=== PATIENT | male | born 1950 | race Caucasian/White ===

== ENCOUNTER 2017-01-16 14:54 | Outpatient (CLI) | payer MEDICARE ==
[2017-01-16 15:39] LABS: ALT (SGPT) 9 U/L (0-55); AST (SGOT) 13 U/L (5-34); Albumin 3.4 g/dL (3.4-4.8); Alkaline Phosphatase 88 U/L (40-150); Anion Gap 13 mmol/L (10-20); BUN (Urea Nitrogen) 14 mg/dL (8.4-25.7); Bilirubin, Total 0.3 mg/dL (0.2-1.2); Calc. Creatinine Clearance 0 mL/min (70-130); Calcium 8.3 mg/dL (7.8-10.44); Carbon Dioxide 27 mmol/L (23-31); Chloride 102 mmol/L (98-107); Estimated GFR-MDRD Greater than 90; Globulin 2.7 g/dL (2.4-3.5); Glucose 110 mg/dL (80-115); Potassium 3.2 mmol/L (3.5-5.1); Protein, Total 6.1 g/dL (5.8-8.1); Sodium 139 mmol/L (136-145)
== END 2017-01-16 14:55 | disposition home or self-care (01) ==
LOC: MADLABBHPM 14:54
PROVIDERS: ATTEND Family Medicine
DX: E03.9 Hypothyroidism, unspecified (principal); E87.6 Hypokalemia
CPT/HCPCS: 80053; 84443

== ENCOUNTER 2017-07-18 10:22 | Outpatient (CLI) | payer MEDICARE ==
[2017-07-18 11:11] LABS: ALT (SGPT) 8 U/L (8-55); AST (SGOT) 11 U/L (5-34); Albumin 3.3 g/dL (3.4-4.8); Alkaline Phosphatase 113 U/L (40-150); Anion Gap 11 mmol/L (10-20); BUN (Urea Nitrogen) 12 mg/dL (8.4-25.7); Bilirubin, Total 0.6 mg/dL (0.2-1.2); Calc. Creatinine Clearance 0 mL/min (70-130); Calcium 8.5 mg/dL (7.8-10.44); Carbon Dioxide 34 mmol/L (23-31); Cardiac Risk 2.2 (Less than 4.5); Chloride 100 mmol/L (98-107); Cholesterol 107 mg/dl (< 200 Desired); Estimated GFR-MDRD Greater than 90; Globulin 2.9 g/dL (2.4-3.5); Glucose 111 mg/dL (80-115); HDL Cholesterol 49 mg/dL (>60 Neg Risk); LDL Cholesterol, Calculated 48 mg/dL; Potassium 3.2 mmol/L (3.5-5.1); Protein, Total 6.2 g/dL (5.8-8.1); Sodium 142 mmol/L (136-145); Triglycerides 49 mg/dL (Less than 150)
== END 2017-07-18 10:23 | disposition home or self-care (01) ==
LOC: MADLABBHPM 10:22
PROVIDERS: ATTEND Family Medicine
DX: E78.5 Hyperlipidemia, unspecified (principal)
CPT/HCPCS: 36415; 80053; 80061

== ENCOUNTER 2017-09-18 10:18 | Outpatient (CLI) | payer MEDICARE | END 2017-09-18 10:19 | disposition home or self-care (01) | LOC: MADLAB 10:18 | PROVIDERS: ATTEND Internal Medicine Cardiovascular Disease | DX: I48.92 Unspecified atrial flutter (principal) | CPT/HCPCS: 36415; 84443 ==

== ENCOUNTER 2017-09-23 14:09 | Emergency (ER) | payer MEDICARE ==
[2017-09-23 15:17] LABS: #Eosinphils 0.1 thou/uL (0.0-0.7); #Lymphocytes 1.3 thou/uL (1.20-3.40); #Monocytes 0.7 thou/uL (0.11-0.59); %Basophils 0.3 % (0.0-1.0); %Eosinophils 1.1 % (0.0-10.0); %Lymphocytes 11.6 % (21.0-51.0); %Monocytes 6.5 % (0.0-10.0); %Neutrophils 80.4 % (42.0-75.0); Hemoglobin 13.6 g/dL (14.0-18.0); Mean Corpuscular HGB CONC 34.4 g/dL (32.0-36.0); Mean Corpuscular Hemoglobin 33.8 pg (27.0-31.0); Mean Corpuscular Volume 98.3 fl (80.0-94.0); Mean Platelet Volume 7.3 fL (7.4-10.4); Platelet Count 187 thou/uL (130-400); RBC Distribution Width 12.5 % (11.5-14.5); Red Blood Cell (RBC) Count 4.01 mill/uL (4.70-6.10); White Blood Cell (WBC) Count 11.2 thou/uL (4.8-10.8)
[2017-09-23 15:34] LABS: ALT (SGPT) 12 U/L (8-55); AST (SGOT) 11 U/L (5-34); Albumin 3.5 g/dL (3.4-4.8); Alkaline Phosphatase 93 U/L (40-150); Anion Gap 12 mmol/L (10-20); BUN (Urea Nitrogen) 10 mg/dL (8.4-25.7); Bilirubin, Total 0.6 mg/dL (0.2-1.2); Calc. Creatinine Clearance 0 mL/min (70-130); Calcium 8.4 mg/dL (7.8-10.44); Carbon Dioxide 26 mmol/L (23-31); Chloride 106 mmol/L (98-107); Estimated GFR-MDRD Greater than 90; Globulin 2.6 g/dL (2.4-3.5); Glucose 128 mg/dL (80-115); Potassium 3.9 mmol/L (3.5-5.1); Protein, Total 6.1 g/dL (5.8-8.1); Sodium 140 mmol/L (136-145)
[2017-09-23 15:36] LABS: CKMB 1.6 ng/mL (0-6.6); Troponin I Less than 0.010 ng/mL (< 0.028)
[2017-09-23] MEDS ORDERED: Furosemide 40 MG TAB ONE (15:41)
--- NOTE | 2017-09-23 15:44 | RAD ---
PORTABLE CHEST: Date: 09/23/17 HISTORY: Chest pain. COMPARISON: 10/07/15. FINDINGS: Heart size is borderline with postop sternotomy change. The lungs are clear of infiltrates. No signs of failure. IMPRESSION: No active intrathoracic disease. POS: [facility]
== END 2017-09-23 15:52 | disposition home or self-care (01) ==
LOC: MADERS 14:09
DX: I11.0 Hypertensive heart disease with heart failure (principal); I50.9 Heart failure, unspecified; I25.2 Old myocardial infarction; Z87.891 Personal history of nicotine dependence; Z79.899 Other long term (current) drug therapy
CPT/HCPCS: 36415; 71010; 80053; 82553; 83880; 84484; 85025; 93005

== ENCOUNTER 2017-10-18 10:22 | Outpatient (CLI) | payer MEDICARE ==
--- NOTE | 2017-10-18 11:29 | RAD ---
TWO VIEWS OF THE CHEST: HISTORY: Dyspnea on exertion. COMPARISON: 09/23/2017 FINDINGS: Two views of the chest show a normal sized cardiomediastinal silhouette. The patient is status post CABG. There is no evidence of consolidation, mass, or pleural effusion. IMPRESSION: No evidence of acute cardiopulmonary disease. POS: [facility]
[2017-10-18 11:57] LABS: Anion Gap 13 mmol/L (10-20); BUN (Urea Nitrogen) 13 mg/dL (8.4-25.7); Calc. Creatinine Clearance 0 mL/min (70-130); Carbon Dioxide 33 mmol/L (23-31); Chloride 99 mmol/L (98-107); Estimated GFR-MDRD Greater than 90; Glucose 118 mg/dL (80-115); Potassium 3.3 mmol/L (3.5-5.1); Sodium 142 mmol/L (136-145)
== END 2017-10-18 10:23 | disposition home or self-care (01) ==
LOC: MADRAD 10:22
PROVIDERS: ATTEND Family Medicine
DX: R06.09 Other forms of dyspnea (principal)
CPT/HCPCS: 36415; 71020; 80048; 84443

== ENCOUNTER 2017-11-06 04:54 | Emergency (ER) | payer MEDICARE ==
[2017-11-06] MEDS ORDERED: Lorazepam 2 MG/ML VIAL ONE (05:29)
[2017-11-06] MEDS ORDERED: Dexamethasone 10 MG/ML VIAL ONE (05:30)
[2017-11-06] MEDS ORDERED: methylPREDNISolone Sod Succ/PF 125 MG/2 ML VIAL ONE (05:30)
[2017-11-06] MEDS ORDERED: Aspirin 325 MG TAB ONE (05:30)
[2017-11-06] MEDS ORDERED: Promethazine HCl 25 MG/ML VIAL ONE (05:30)
[2017-11-06 06:28] LABS: #Basophils 0.1 thou/uL (0.0-0.2); #Eosinphils 0.1 thou/uL (0.0-0.7); #Monocytes 0.6 thou/uL (0.11-0.59); #Neutrophils 8.3 thou/uL (1.40-6.50); %Basophils 0.6 % (0.0-1.0); %Eosinophils 1.2 % (0.0-10.0); %Lymphocytes 17.7 % (21.0-51.0); %Monocytes 5.6 % (0.0-10.0); %Neutrophils 74.9 % (42.0-75.0); Hemoglobin 14.1 g/dL (14.0-18.0); Mean Corpuscular HGB CONC 33.6 g/dL (32.0-36.0); Mean Corpuscular Hemoglobin 33.2 pg (27.0-31.0); Mean Corpuscular Volume 98.8 fl (80.0-94.0); Mean Platelet Volume 7.2 fL (7.4-10.4); Platelet Count 231 thou/uL (130-400); RBC Distribution Width 12.2 % (11.5-14.5); Red Blood Cell (RBC) Count 4.24 mill/uL (4.70-6.10)
[2017-11-06 06:33] LABS: Prothrombin Time 12.8 SEC (12.0-14.7)
[2017-11-06 06:34] LABS: ALT (SGPT) Less than 7 U/L (8-55); AST (SGOT) 13 U/L (5-34); Albumin 3.6 g/dL (3.4-4.8); Alkaline Phosphatase 122 U/L (40-150); Anion Gap 15 mmol/L (10-20); BUN (Urea Nitrogen) 12 mg/dL (8.4-25.7); Bilirubin, Total 0.7 mg/dL (0.2-1.2); CK (CPK) 106 U/L (30-200); Calc. Creatinine Clearance 0 mL/min (70-130); Calcium 8.8 mg/dL (7.8-10.44); Carbon Dioxide 31 mmol/L (23-31); Chloride 100 mmol/L (98-107); Estimated GFR-MDRD 84; Glucose 136 mg/dL (80-115); Magnesium 2.1 mg/dL (1.6-2.6); Potassium 3.2 mmol/L (3.5-5.1); Protein, Total 6.6 g/dL (5.8-8.1); Sodium 143 mmol/L (136-145)
[2017-11-06 06:35] LABS: D-Dimer Test 0.31 *mcg/mL (0.27-0.43)
[2017-11-06 06:37] LABS: CKMB 1.3 ng/mL (0-6.6); Troponin I Less than 0.010 ng/mL (< 0.028)
[2017-11-06] MEDS ORDERED: Sodium Chloride 0.9% 1,000 ML BAG ONE (08:32)
--- NOTE | 2017-11-06 08:38 | RAD ---
RADIOGRAPH CHEST 1 VIEW: HISTORY: A 66-year-old male with dyspnea. FINDINGS: The thoracic aorta is tortuous and ectatic. There is no evidence of air space density, pneumothorax, or pulmonary edema. The lateral costophrenic angles are sharp. There is no cardiomegaly. There ar e sternotomy wires. IMPRESSION: 1) No acute pulmonary findings. 2) Ectasia of thoracic aorta. 3) Status post coronary artery bypass graft surgery is evidence for coronary artery atherosclerotic d isease. christopher [] POS: [facility]
[2017-11-06 10:21] LABS: PTT 33.7 SEC (22.9-36.1)
== END 2017-11-06 07:35 | disposition home or self-care (01) ==
LOC: MADERS 04:54
DX: R06.00 Dyspnea, unspecified (principal); I25.10 Atherosclerotic heart disease of native coronary artery without angina pectoris; I25.2 Old myocardial infarction; E78.5 Hyperlipidemia, unspecified; I11.0 Hypertensive heart disease with heart failure; I50.9 Heart failure, unspecified; Z87.891 Personal history of nicotine dependence; Z79.82 Long term (current) use of aspirin; Z79.899 Other long term (current) drug therapy; Z79.891 Long term (current) use of opiate analgesic
CPT/HCPCS: 36415; 71045; 80053; 82553; 83735; 83880; 84484; 85025; 85379; 85610; 85730; 93005; 94760; 96361; 96374; 96375; J1100; J2060; J2550; J2930; J7050; J7620

== ENCOUNTER 2018-10-03 00:31 | Emergency (ER) | payer MEDICARE ==
[2018-10-03] MEDS ORDERED: Ibuprofen 800 MG TAB ONE (00:59)
[2018-10-03] MEDS ORDERED: Acetaminophen 500 MG TAB ONE (00:59)
[2018-10-03] MEDS ORDERED: Furosemide 40 MG/4 ML VIAL ONE (01:00)
[2018-10-03 01:03] LABS: #Lymphocytes 0.7 thou/uL (1.20-3.40); #Monocytes 0.5 thou/uL (0.11-0.59); #Neutrophils 9.3 thou/uL (1.40-6.50); %Basophils 0.4 % (0.0-1.0); %Eosinophils 0.4 % (0.0-10.0); %Lymphocytes 6.8 % (21.0-51.0); %Monocytes 4.2 % (0.0-10.0); %Neutrophils 88.1 % (42.0-75.0); Hemoglobin 13.3 g/dL (14.0-18.0); Mean Corpuscular HGB CONC 33.6 g/dL (32.0-36.0); Mean Corpuscular Hemoglobin 33.3 pg (27.0-31.0); Mean Corpuscular Volume 99.2 fL (78.0-98.0); Mean Platelet Volume 6.8 fL (7.4-10.4); Platelet Count 205 thou/uL (130-400); RBC Distribution Width 11.6 % (11.5-14.5); Red Blood Cell (RBC) Count 3.99 mill/uL (4.70-6.10); White Blood Cell (WBC) Count 10.6 thou/uL (4.8-10.8)
[2018-10-03] MEDS ORDERED: cefTRIAXone\\ROCEPHIN 1 GM VIAL ONE (01:12)
[2018-10-03 01:17] LABS: Anion Gap 14 mmol/L (10-20); BUN (Urea Nitrogen) 14 mg/dL (8.4-25.7); Calc. Creatinine Clearance 0 mL/min (70-130); Calcium 8.5 mg/dL (7.8-10.44); Carbon Dioxide 27 mmol/L (23-31); Chloride 101 mmol/L (98-107); Estimated GFR-MDRD 90; Glucose 150 mg/dL (80-115); Potassium 3.6 mmol/L (3.5-5.1); Sodium 138 mmol/L (136-145)
[2018-10-03 01:23] LABS: CKMB 1.2 ng/mL (0-6.6); Troponin I Less than 0.010 ng/mL (< 0.028)
--- NOTE | 2018-10-03 08:04 | RAD ---
PORTABLE CHEST: DATE: 10/02/2018. PROVIDED CLINICAL HISTORY: Cough and congestion. FINDINGS: Comparison 11/06/2017. Cardiac and mediastinal silhouette is unchanged in appearance. Prominence of t he pulmonary vasculature and pulmonary interstitium is noted. No focal consolidation, pleural fluid, or pneumothorax apparent. Median sternotomy changes and atherosclerosis are again seen. IMPRESSION: Findings suggesting congestive failure. Followup is recommended. POS: [facility]
--- NOTE | 2018-10-03 08:45 | CT ---
PRELIMINARY REPORT/[facility]/EMERGENTY AFTER-HOURS PROCEDURE CT Angiography Chest With Intravenous Contrast EXAM DATE/TIME: 10/03/2018 2:19 AM CLINICAL HISTORY: 67 years old, male; Dyspnea; Chest pain on breathing; Prior surgery; date: 6+ months; Bypass 3 vessel s. Gastric bypass TECHNIQUE: Axial computed tomographic angiography images of the chest with intravenous contrast using CT angiogr aphy protocol. All CT scans at this facility use at least one of these dose optimization techniques: automated expos ure control; mA and/or kV adjustment per patient size (includes targeted exams where dose is matched to clinical indication); or iterative reconstruction. MIP reconstructed images were created and revie wed. CONTRAST: 100 ml of ISOVUE administered intravenously. COMPARISON: No relevant prior studies available. FINDINGS: Pulmonary arteries: No evidence of pulmonary embolism. Aorta: Normal caliber thoracic aorta without dissection or aneurysm. Lungs: Mild infiltrate or atelectasis in the posteromedial right lung base. Pleural space: No pleural fluid collection. No pneumothorax. Heart: Coronary artery calcification. No pericardial effusion. Stomach and bowel: Prior gastric bypass surgery. Lymph nodes: No pathologically enlarged lymph nodes. Bones/joints: Prior cervical spine surgery. Prior median sternotomy. Soft tissues: Unremarkable. IMPRESSION: 1. No evidence of pulmonary embolism. 2. Mild infiltrate or atelectasis in the posteromedial right lung base. Thank you for allowing us to participate in the care of your patient. Dictated and Authenticated by: Akhil Go MD 10/03/2018 3:14 AM Central Time ([place] & [place]) FINAL REPORT CT PULMONARY ANGIO CHEST WITH 3D RENDERING: FINDINGS: There is considerable motion artifact which lowers the sensitivity of this study. No convincing CT e vidence for acute pulmonary embolism. Patchy right lower lobe parenchymal changes. Postoperative ch anges of the stomach with midline sternotomy. POS: [facility]
[2018-10-03] MEDS ORDERED: Iopamidol 370 76% 125 ML VIAL FS ONE (17:13)
== END 2018-10-03 04:18 | disposition home or self-care (01) ==
LOC: MADERS 00:31
DX: J20.9 Acute bronchitis, unspecified (principal); I25.10 Atherosclerotic heart disease of native coronary artery without angina pectoris; I25.2 Old myocardial infarction; E78.5 Hyperlipidemia, unspecified; I11.0 Hypertensive heart disease with heart failure; I50.9 Heart failure, unspecified; Z87.891 Personal history of nicotine dependence; Z79.82 Long term (current) use of aspirin; Z79.899 Other long term (current) drug therapy
CPT/HCPCS: 71045; 71275; 80048; 82553; 83605; 83880; 84484; 85025; 85379; 87040; 87804; 93005; 94760; 96365; 96375; J0696; J1940; J3370; J7620

== ENCOUNTER 2018-11-29 13:19 | Emergency (ER) | payer MEDICARE ==
[2018-11-29 13:50] LABS: Bilirubin Negative (Negative); Blood, Urine Negative (Negative); Clarity Clear (Clear); Glucose, Urine (Dipstick) Negative (Negative); Leukocyte Negative (Negative); Nitrite Negative (Negative); Protein, Urine (Dipstick) Negative (Neg-Trace); Specific Gravity, Urine 1.015 (1.005-1.030); Urobilinogen 0.2 mg/dL (0.2-1.0)
[2018-11-29] MEDS ORDERED: Morphine 10 MG/ML VIAL ONE (14:11)
[2018-11-29] MEDS ORDERED: Prochlorperazine 10 MG/2 ML VIAL ONE ×2 (14:13)
[2018-11-29] MEDS ORDERED: Tamsulosin HCl 0.4 MG CAP ONE (14:13)
[2018-11-29] MEDS ORDERED: Ketorolac Tromethamine 60 MG/2 ML VIAL ONE ×2 (14:13→14:14)
[2018-11-29] MEDS ORDERED: Prochlorperazine Maleate 5 MG TAB ONE (14:21)
--- NOTE | 2018-11-29 14:22 | CT ---
CT ABDOMEN AND PELVIS NONCONTRAST: HISTORY: Right flank pain. COMPARISON: 03/01/2013. FINDINGS: Each renal collecting system, ureter, and urinary bladder are decompressed. A 0.2 cm calculus is pre sent within a nondilated calyx at the inferior pole of the left kidney. Lack of contrast limits evaluation for other abnormalities. Postoperative changes of the stomach and bowel. Gallbladder is surgically absent. Calcification throughout the arterial structures. IMPRESSION: 1. Tiny nonobstructing left renal calculus. 2. Atherosclerosis. POS: [facility]
== END 2018-11-29 14:40 | disposition home or self-care (01) ==
LOC: MADERS 13:19
DX: N20.0 Calculus of kidney (principal); I25.10 Atherosclerotic heart disease of native coronary artery without angina pectoris; I25.2 Old myocardial infarction; E78.5 Hyperlipidemia, unspecified; Z87.891 Personal history of nicotine dependence; Z79.82 Long term (current) use of aspirin; Z79.899 Other long term (current) drug therapy; Z79.51 Long term (current) use of inhaled steroids
CPT/HCPCS: 74176; 81003; 87086; 96372; J0780; J1885; J2270; Q0164

== ENCOUNTER 2019-05-02 01:02 | Emergency (ER) | payer MEDICARE ==
[2019-05-02] MEDS ORDERED: Cyclobenzaprine 10 MG TAB ONE (01:33)
[2019-05-02] MEDS ORDERED: Ketorolac Tromethamine 60 MG/2 ML VIAL ONE (01:33)
== END 2019-05-02 02:06 | disposition home or self-care (01) ==
LOC: MADERS 01:02
DX: G89.29 Other chronic pain (principal); M54.2 Cervicalgia; M54.9 Dorsalgia, unspecified; Z87.891 Personal history of nicotine dependence; Z79.82 Long term (current) use of aspirin; I25.2 Old myocardial infarction; E78.5 Hyperlipidemia, unspecified; I25.10 Atherosclerotic heart disease of native coronary artery without angina pectoris; Z79.899 Other long term (current) drug therapy
CPT/HCPCS: 96372; J1885

== ENCOUNTER 2019-08-08 15:12 | Outpatient (CLI) | payer MEDICARE ==
--- NOTE | 2019-08-08 15:51 | CT ---
CT Stone Protocol: 08/08/2019 3:34 PM HISTORY: Right flank pain; history of kidney stones COMPARISON: 11/29/2018 TECHNIQUE: Multiple contiguous axial images were obtained and a CT of the abdomen and pelvis without IV contrast . Oral contrast was administered. Coronal and sagittal reformats were performed. FINDINGS: This examination is limited for the evaluation of solid organs and vascular structures due to the lac k of intravenous contrast. Lower Chest: within normal limits. Abdomen: Liver: within normal limits. Air is seen in the biliary tree likely from prior sphincterotomy at the ampulla of Vater. Bile Ducts: Normal caliber. Gallbladder: Removed Pancreas: within normal limits. Spleen: within normal limits. Adrenals: within normal limits. Kidneys: within normal limits. Pelvis: Reproductive Organs: No pelvic masses. Ureters: within normal limits. Bladder: within normal limits. Bowel: Normal caliber. Postsurgical changes in the stomach. Mesenteric Lymph Nodes: No enlarged mesenteric lymph nodes. Peritoneum: No ascites or free air, no fluid collection. Vessels: Atherosclerotic calcifications in the aorta Retroperitoneum: within normal limits. Abdominal Wall: Small fat-containing right inguinal hernia. Bones: Degenerative changes and postsurgical changes in the spine. IMPRESSION: No evidence of acute intraabdominal or pelvic abnormality.
[2019-08-08 16:19] LABS: #Basophils 0.1 thou/uL (0.0-0.2); #Eosinphils 0.2 thou/uL (0.0-0.7); #Lymphocytes 1.6 thou/uL (1.20-3.40); #Monocytes 0.6 thou/uL (0.11-0.59); #Neutrophils 5.6 thou/uL (1.40-6.50); %Basophils 0.8 % (0.0-1.0); %Lymphocytes 19.9 % (21.0-51.0); %Monocytes 7.8 % (0.0-10.0); %Neutrophils 69.5 % (42.0-75.0); Hemoglobin 13.7 g/dL (14.0-18.0); Mean Corpuscular HGB CONC 32.8 g/dL (32.0-36.0); Mean Corpuscular Hemoglobin 30.8 pg (27.0-31.0); Mean Corpuscular Volume 93.9 fL (78.0-98.0); Mean Platelet Volume 6.2 fL (7.4-10.4); Platelet Count 223 thou/uL (130-400); RBC Distribution Width 12.5 % (11.5-14.5); Red Blood Cell (RBC) Count 4.45 mill/uL (4.70-6.10); White Blood Cell (WBC) Count 8.1 thou/uL (4.8-10.8)
[2019-08-08 16:23] LABS: Bilirubin Negative (Negative); Blood, Urine Trace (Negative); Glucose, Urine (Dipstick) Negative (Negative); Leukocyte Negative (Negative); Nitrite Negative (Negative); Protein, Urine (Dipstick) 30 mg/dL (Neg-Trace)
[2019-08-08 16:30] LABS: ALT (SGPT) 7 U/L (8-55); AST (SGOT) 16 U/L (5-34); Albumin 4.1 g/dL (3.4-4.8); Alkaline Phosphatase 114 U/L (40-110); Anion Gap 15 mmol/L (10-20); BUN (Urea Nitrogen) 15 mg/dL (8.4-25.7); Bilirubin, Total 0.8 mg/dL (0.2-1.2); Calc. Creatinine Clearance 0 mL/min (70-130); Calcium 8.8 mg/dL (7.8-10.44); Carbon Dioxide 26 mmol/L (23-31); Chloride 101 mmol/L (98-107); Estimated GFR-MDRD Greater than 90; Globulin 3.3 g/dL (2.4-3.5); Glucose 113 mg/dL (80-115); Potassium 4.4 mmol/L (3.5-5.1); Protein, Total 7.4 g/dL (5.8-8.1); Sodium 138 mmol/L (136-145)
[2019-08-08 16:45] LABS: Clarity Hazy (Clear)
[2019-08-08 16:46] LABS: RBC/HPF 0-3 HPF (0-3); WBC/HPF 0-3 HPF (0-3)
[2019-08-08 16:47] LABS: Bacteria/HPF 1+ HPF (None Seen)
== END 2019-08-08 15:13 | disposition home or self-care (01) ==
LOC: MADLABBHPM 15:12
PROVIDERS: ATTEND Family Medicine
DX: R10.9 Unspecified abdominal pain (principal); R31.0 Gross hematuria
CPT/HCPCS: 36415; 74176; 80053; 81001; 85025; 87086

== ENCOUNTER 2020-11-12 11:21 | Outpatient (CLI) | payer MEDICARE ==
--- NOTE | 2020-11-12 11:59 | RAD ---
EXAM: Two views chest PROVIDED CLINICAL HISTORY: Shortness of breath COMPARISON: 10/18/2017 FINDINGS: Cardiac and mediastinal silhouette appears within normal limits. Lungs appear free of significant opa city. No pleural fluid or pneumothorax apparent. Atherosclerosis and median sternotomy changes are redemonstrated. IMPRESSION: No evidence for an acute cardiopulmonary process.
== END 2020-11-12 11:22 | disposition home or self-care (01) ==
LOC: MADRAD 11:21
PROVIDERS: ATTEND Internal Medicine Cardiovascular Disease
DX: R06.02 Shortness of breath (principal)
CPT/HCPCS: 71046

== ENCOUNTER 2021-01-11 06:47 | Emergency (ER) | payer MEDICARE | END 2021-01-11 07:24 | disposition home or self-care (01) | LOC: MADERS 06:47 | DX: K59.00 Constipation, unspecified (principal); I48.91 Unspecified atrial fibrillation; Z87.891 Personal history of nicotine dependence; I25.10 Atherosclerotic heart disease of native coronary artery without angina pectoris; I25.2 Old myocardial infarction; E78.00 Pure hypercholesterolemia, unspecified; E78.5 Hyperlipidemia, unspecified | CPT/HCPCS: 99283 ==

== ENCOUNTER 2021-12-21 13:37 | Emergency (ER) | payer MEDICARE ==
[~2021-12-21 13:37] MED LIST: Iopamidol 370 76% 125 ML VIAL FS ONE; Sodium Chloride 0.9% 100 ML BAG ONE
[2021-12-21 15:00] LABS: Bilirubin Negative (Negative); Blood, Urine Negative (Negative); Clarity Clear (Clear); Glucose, Urine (Dipstick) Negative (Negative); Ketone, Urine Negative (Negative); Leukocyte Negative (Negative); Nitrite Negative (Negative); Protein, Urine (Dipstick) Negative (Neg-Trace); Specific Gravity, Urine 1.025 (1.005-1.030); Urobilinogen 0.2 mg/dL (Less than 2)
[2021-12-21 15:39] LABS: #Basophils 0.1 thou/uL (0.0-0.2); #Eosinphils 0.1 thou/uL (0.0-0.7); #Lymphocytes 1.5 thou/uL (1.20-3.40); #Monocytes 0.9 thou/uL (0.11-0.59); #Neutrophils 8.2 thou/uL (1.40-6.50); %Basophils 0.7 % (0.0-1.0); %Eosinophils 1.3 % (0.0-10.0); %Lymphocytes 13.9 % (21.0-51.0); %Monocytes 8.1 % (0.0-10.0); %Neutrophils 75.9 % (42.0-75.0); Hemoglobin 12.5 g/dL (14.0-18.0); Mean Corpuscular HGB CONC 31.6 g/dL (32.0-36.0); Mean Corpuscular Hemoglobin 30.9 pg (27.0-31.0); Mean Platelet Volume 6.4 fL (7.4-10.4); Platelet Count 228 thou/uL (130-400); RBC Distribution Width 14.9 % (11.5-14.5); Red Blood Cell (RBC) Count 4.03 mill/uL (4.70-6.10); White Blood Cell (WBC) Count 10.8 thou/uL (4.8-10.8)
[2021-12-21] MEDS ORDERED: Midazolam HCl 2 mg/2 ml Vial ONE (15:43)
[2021-12-21] MEDS ORDERED: Fentanyl 100 MCG/2 ML VIAL ONE (15:43)
[2021-12-21] MEDS ORDERED: Diltiazem 125 MG/25 ML ONE (15:52)
[2021-12-21 15:53] LABS: ALT (SGPT) 9 U/L (8-55); AST (SGOT) 11 U/L (5-34); Albumin 3.4 g/dL (3.4-4.8); Alkaline Phosphatase 96 U/L (40-110); Anion Gap 15 mmol/L (10-20); BUN (Urea Nitrogen) 9 mg/dL (8.4-25.7); Bilirubin, Total 0.6 mg/dL (0.2-1.2); Calc. Creatinine Clearance 0 mL/min (70-130); Calcium 8.9 mg/dL (7.8-10.44); Carbon Dioxide 25 mmol/L (23-31); Chloride 104 mmol/L (98-107); Globulin 3.5 g/dL (2.4-3.5); Glucose 125 mg/dL (83-110); Potassium 4.1 mmol/L (3.5-5.1); Protein, Total 6.9 g/dL (5.8-8.1); Sodium 140 mmol/L (136-145)
[2021-12-21 17:05] LABS: SARS-CoV-2 NAA Rapid Test DETECTED (NotDetected)
[2021-12-21] MEDS ORDERED: Metoprolol Tartrate 5 MG/5 ML VIAL ONE (17:15)
[2021-12-21] MEDS ORDERED: Sodium Chloride 0.9% 100 ML ONE (18:10)
[2021-12-21] MEDS ORDERED: cefTRIAXone\\ROCEPHIN 1 GM VIAL ONE (18:10)
== END 2021-12-21 18:36 | disposition home or self-care (01) ==
LOC: MADERS 13:37
DX: U07.1 COVID-19 (principal); J12.82 Pneumonia due to coronavirus disease 2019; I48.91 Unspecified atrial fibrillation; M54.6 Pain in thoracic spine; R00.1 Bradycardia, unspecified; I45.10 Unspecified right bundle-branch block; M54.50 Low back pain, unspecified; G89.29 Other chronic pain; I10 Essential (primary) hypertension; E03.9 Hypothyroidism, unspecified; E78.5 Hyperlipidemia, unspecified; E78.00 Pure hypercholesterolemia, unspecified; I25.2 Old myocardial infarction; I25.10 Atherosclerotic heart disease of native coronary artery without angina pectoris; Z87.891 Personal history of nicotine dependence
CPT/HCPCS: 0240U; 71046; 71275; 81003; 83605; 84484; 85379; 93005; 94760; 96365; 96366; 96375; 99285; 36415; 80053; 84443; 85025; J0696; J2250; J3010; J3490; Q9967

== ENCOUNTER 2022-01-31 07:58 | Emergency (ER) | payer MEDICARE ==
[2022-01-31] MEDS ORDERED: Morphine 4 MG/ML VIAL ONE (08:30)
== END 2022-01-31 08:50 | disposition home or self-care (01) ==
LOC: MADERS 07:58
DX: R60.0 Localized edema (principal); I11.0 Hypertensive heart disease with heart failure; I50.9 Heart failure, unspecified; I25.2 Old myocardial infarction; I25.10 Atherosclerotic heart disease of native coronary artery without angina pectoris; I48.91 Unspecified atrial fibrillation; E03.9 Hypothyroidism, unspecified; E78.5 Hyperlipidemia, unspecified; E78.00 Pure hypercholesterolemia, unspecified; Z87.891 Personal history of nicotine dependence
CPT/HCPCS: 96372; 99283; J2270

== ENCOUNTER 2022-12-16 15:00 | Outpatient (CLI) | payer MEDICARE | END 2022-12-16 15:01 | disposition home or self-care (01) | LOC: MADRAD 15:00 | PROVIDERS: ATTEND Anesthesiology Pain Medicine | DX: M47.816 Spondylosis without myelopathy or radiculopathy, lumbar region (principal) | CPT/HCPCS: 72100 ==